=== PATIENT | female | born 1995 | race Hispanic/Latino ===

== ENCOUNTER 2020-09-30 02:50 | Emergency (ER) | payer SELFPAY ==
[2020-09-30] MEDS ORDERED: SODIUM CHLORIDE 0.9% 1000 ML 1,000 ML IV ONE (02:58)
[2020-09-30] MEDS ORDERED: ONDANSETRON 4 MG/2 ML INJ IV ONE (03:00)
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
--- NOTE | 2020-09-30 04:11 | Cat Scan Report ---
CT HEAD WITHOUT CONTRAST INDICATION: FALL, FACIAL TRAUMA TECHNIQUE: All CT scans at this location are performed using CT dose reduction for ALARA by means of automated exposure control. COMPARISON: None available. FINDINGS: BRAIN: No hemorrhage or mass effect are seen. No evidence of acute infarction is noted. Artifact is s een in the vertex area and base. ORBITS: Normal as visualized. SOFT TISSUES OF HEAD: Normal. CALVARIUM: Normal. VISUALIZED PARANASAL SINUSES AND MASTOID AIR CELLS: Clear. ADDITIONAL FINDINGS: None. CT FACE HISTORY: FALL, FASCIAL TRAUMA COMPARISON: None. TECHNIQUE: Axial images of the face were obtained. Coronal reformats were generated. All CT scans at this location are performed using CT dose reduction for ALARA by means of automated exposure control . CONTRAST: None. FINDINGS: Note: Mild motion artifact is present. Facial soft tissues: No significant abnormality. Facial bones: No fracture or other significant abnormality. Paranasal sinuses: Clear. Orbits: No significant abnormality. Visualized images of the intracranial space: No significant abnormality. Additional findings: None. IMPRESSION: No significant abnormalities are seen Signer Name: Callum Krueger MD Signed: 09/30/2020 4:07 AM Workstation Name: [id number]
[2020-09-30 04:50] LABS: Basophils # (Auto) 0.1 K/mm3 (0.0-0.1); Basophils % (Auto) 0.5 % (0.0-1.8); Eosinophils % (Auto) 0.3 % (0.0-4.3); Hemoglobin 12.8 gm/dl (10.1-14.3); Lymphocytes # (Auto) 1.7 K/mm3 (1.2-5.4); Lymphocytes % (Auto) 10.2 % (13.4-35.0); Monocytes # (Auto) 1.1 K/mm3 (0.0-0.8); Monocytes % (Auto) 6.6 % (0.0-7.3)
[2020-09-30 05:03] LABS: Hematocrit 37.2 % (30.3-42.9); Mean Corpuscular HGB Conc 34 % (30-34); Mean Corpuscular Volume 93 fl (79-97); Platelet Count 334 K/mm3 (140-440); Red Blood Count 4.01 M/mm3 (3.65-5.03); Red Cell Distribution Width 12.4 % (13.2-15.2)
[2020-09-30 05:14] LABS: Blood Urea Nitrogen 11 mg/dL (7-17); Calcium 8.5 mg/dL (8.4-10.2); Hemolysis Index 15
[2020-09-30 05:15] LABS: Alanine Aminotransferase 16 units/L (7-56)
[2020-09-30 05:16] LABS: BUN/Creatinine Ratio 18
[2020-09-30 05:17] LABS: Bilirubin,Direct < 0.2 mg/dL (0-0.2)
[2020-09-30 05:18] VITALS: BP 126/60
[2020-09-30] MEDS ORDERED: NALOXONE 2 MG/2 ML INJ IV ONE (05:27)
[2020-09-30 06:14] LABS: Amphetamine Screen,Urine PRESUMPTIVE NEGATIVE; Benzodiazepines Screen,Urine PRESUMPTIVE POSITIVE; Cannabinoid Screen,Urine PRESUMPTIVE POSITIVE; Cocaine Screen,Urine PRESUMPTIVE NEGATIVE; Methadone Screen,Urine PRESUMPTIVE NEGATIVE; Opiate Screen,Urine PRESUMPTIVE NEGATIVE
--- NOTE | 2020-09-30 06:14 | XRay Report ---
CHEST 1 VIEW [id number] INDICATION / CLINICAL INFORMATION: COUGH COMPARISON: None available. FINDINGS: SUPPORT DEVICES: None HEART / MEDIASTINUM: No significant abnormality. LUNGS / PLEURA: Left lung field shows only a trace of basilar atelectasis. Increased interstitial mar kings are seen asymmetrically in the right mid to lower lung field of concern for developing pneumoni tis. No pneumothorax. ADDITIONAL FINDINGS: No significant additional findings. Signer Name: Callum Krueger MD Signed: 09/30/2020 6:10 AM Workstation Name: [id number]
[2020-09-30 06:16] LABS: Bacteria,Urine 1+ /HPF (Negative); Bilirubin,Urine NEG (Negative); Blood,Urine NEG (Negative); Color,Urine Yellow (Yellow); Mucus,Urine 1+ /HPF; Protein,Urine <15 mg/dL mg/dL (Negative); Urobilinogen,Urine < 2.0 mg/dL (<2.0)
== END 2020-09-30 07:00 | disposition home or self-care (01) ==
LOC: ED 02:50
DX: T50.901A Poisoning by unspecified drugs, medicaments and biological substances, accidental (unintentional), initial encounter (principal); R41.82 Altered mental status, unspecified; F19.10 Other psychoactive substance abuse, uncomplicated; Y92.89 Other specified places as the place of occurrence of the external cause
CPT/HCPCS: 36415; 70450; 70486; 71045; 80048; 80076; 80307; 81001; 82962; 84703; 85025; 96361; 96374; 99285; J2405; J7030; 80320; G0480; J2310